=== PATIENT | male | born 1965 | race Hispanic/Latino ===

== ENCOUNTER 2018-04-10 13:23 | Emergency (ER) | payer SELFPAY ==
--- NOTE | 2018-04-10 13:49 | RAD ---
RIGHT ANKLE THREE VIEWS: History: Ankle pain. Comparison: None. FINDINGS: No fracture. No malalignment. Mild soft tissue swelling. IMPRESSION: No acute fracture. POS: [facility]
[2018-04-10] MEDS ORDERED: HYDROcodone/Acetaminophen 10/325 mg Tablet ONE (15:25)
[2018-04-10] MEDS ORDERED: Acetaminophen 650 MG/20.3 ML UDCUP ONE (17:06)
== END 2018-04-10 15:54 | disposition home or self-care (01) ==
LOC: ERS 13:23
DX: S93.401A Sprain of unspecified ligament of right ankle, initial encounter (principal); W19.XXXA Unspecified fall, initial encounter

== ENCOUNTER 2018-10-10 17:52 | Emergency (ER) | payer SELFPAY | END 2018-10-10 19:43 | disposition home or self-care (01) | LOC: ERS 17:52 | DX: S39.012A Strain of muscle, fascia and tendon of lower back, initial encounter (principal); X50.1XXA Overexertion from prolonged static or awkward postures, initial encounter | CPT/HCPCS: 99283 ==